=== PATIENT | female | born 1995 | race American Indian/Alaskan Native ===

== ENCOUNTER 2017-08-05 20:22 | Emergency (ER) | payer OTHER, MEDICARE ==
[2017-08-05 22:16] LABS: HCG Qualitative,Urine Negative (Negative)
--- NOTE | 2017-08-05 23:12 | Cat Scan Report ---
FINAL REPORT PROCEDURE: CT HEAD/BRAIN WO CON TECHNIQUE: Computerized tomography of the head was performed without contrast material. HISTORY: headache.History TBI COMPARISON: No prior studies are available for comparison. FINDINGS: Skull and scalp: Normal. Paranasal sinuses: Normal. Ventricles and subarachnoid spaces: Normal. Cerebrum: No evidence of hemorrhage, acute infarction or mass . Cerebellum and brainstem: No evidence of hemorrhage, acute infarction or mass. Vasculature: Normal. Comments: None. IMPRESSION: Normal Examination
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
[2017-08-06] MEDS ORDERED: NORCO 5/325 PO ONE (01:53)
[2017-08-06 02:42] VITALS: BP 108/70
== END 2017-08-06 03:41 | disposition home or self-care (01) ==
LOC: ED 20:22
DX: S00.83XA Contusion of other part of head, initial encounter (principal); S09.90XA Unspecified injury of head, initial encounter; V49.59XA Passenger injured in collision with other motor vehicles in traffic accident, initial encounter; Y93.89 Activity, other specified; Y92.89 Other specified places as the place of occurrence of the external cause; Y99.8 Other external cause status
CPT/HCPCS: 70450; 81025

== ENCOUNTER 2017-09-30 14:22 | Outpatient (CLI) | payer OTHER, MEDICARE ==
--- NOTE | 2017-09-30 20:10 | XRay Report ---
FINAL REPORT EXAM: XR FEMUR 2+V LT HISTORY: PAIN IN LEFT KNEE TECHNIQUE: AP and lateral views of the left femur PRIORS: None. FINDINGS: There is no evidence for acute fracture or dislocation. No soft tissue swelling or radiopaque foreign bodies are seen. Bony mineralization is normal and joint spaces are maintained. Intramedullary paulina is present in the proximal tibia. IMPRESSION: No acute bony or soft tissue abnormality noted.
--- NOTE | 2017-09-30 20:12 | XRay Report ---
FINAL REPORT EXAM: XR TIBIA FIBULA 2V LT HISTORY: LT KNEE/ LEG PAIN TECHNIQUE: AP and lateral views of the left tibia and fibula PRIORS: None. FINDINGS: Intramedullary paulina and several screws are present in the tibial shaft versus a remote healed fracture deformity in the midshaft. There also a remote healed fracture deformity of the midshaft of the fibula. There is no evidence for acute fracture or dislocation. No soft tissue swelling or radiopaque foreign bodies are seen. Bony mineralization is normal and joint spaces are maintained. IMPRESSION: No acute bony or soft tissue abnormality noted. Remote healed fractures involving the midshaft of both tibia and fibula.
== END 2017-09-30 14:23 | disposition home or self-care (01) ==
LOC: XRAY 14:22
PROVIDERS: ATTEND Orthopaedic Surgery
DX: M25.562 Pain in left knee (principal)